=== PATIENT | female | born 1990 | race Hispanic/Latino ===

== ENCOUNTER 2022-07-19 16:36 | Emergency (ER) | payer SELFPAY ==
[2022-07-19] MEDS ORDERED: Ibuprofen 200 MG TAB ONE (18:23)
[2022-07-19] MEDS ORDERED: Dexamethasone 10 MG/ML VIAL ONE (18:24)
[2022-07-19 19:10] LABS: SARS-CoV-2 NAA Rapid Test Not Detected (NotDetected)
== END 2022-07-19 20:47 | disposition home or self-care (01) ==
LOC: CSHERS 16:36
DX: B34.9 Viral infection, unspecified (principal); Z20.822 Contact with and (suspected) exposure to COVID-19; F17.210 Nicotine dependence, cigarettes, uncomplicated
CPT/HCPCS: 71045; 87081; 87430; 93005; J1100

== ENCOUNTER 2022-09-27 19:13 | Emergency (ER) | payer SELFPAY ==
[2022-09-27] MEDS ORDERED: Dexamethasone 10 MG/ML VIAL ONE (20:10)
[2022-09-27] MEDS ORDERED: cefTRIAXone\\ROCEPHIN 1 GM VIAL ONE (20:10)
[2022-09-27] MEDS ORDERED: Lidocaine 1% PF 5 ML VIAL ONE (20:11)
== END 2022-09-27 20:28 | disposition home or self-care (01) ==
LOC: CSHERS 19:13
DX: J02.9 Acute pharyngitis, unspecified (principal); F17.210 Nicotine dependence, cigarettes, uncomplicated
CPT/HCPCS: 96372; 99283; J0696; J1100

== ENCOUNTER 2023-05-02 12:20 | Emergency (ER) | payer SELFPAY ==
[2023-05-02] MEDS ORDERED: Dexamethasone 4 MG TAB ONE (14:51)
== END 2023-05-02 14:52 | disposition home or self-care (01) ==
LOC: CSHERS 12:20
DX: J02.9 Acute pharyngitis, unspecified (principal); H92.01 Otalgia, right ear; F17.210 Nicotine dependence, cigarettes, uncomplicated
CPT/HCPCS: 99283; J8540

== ENCOUNTER 2024-09-16 06:05 | Emergency (ER) | payer MEDICAID, SELFPAY ==
[2024-09-16 06:58] LABS: #Basophils 0.05 10x3/uL (0.0-0.2); #Eosinophils 0.15 10x3/uL (0.0-0.5); #Monocytes 0.89 10x3/uL (0.0-1.1); #Neutrophils 6.36 10x3/uL (1.5-8.4); %Basophils 0.5 % (0.0-2.0); %Eosinophils 1.6 % (0.0-6.0); %Lymphocytes 20.9 % (18.0-47.0); %Monocytes 9.4 % (0.0-10.0); %Neutrophils 67.2 % (40.0-75.0); Hematocrit 34.1 % (34.9-44.5); Hemoglobin 12.4 g/dL (12.0-15.5); Mean Corpuscular HGB CONC 36.4 g/dL (32.0-36.0); Mean Corpuscular Hemoglobin 31.6 pg (27.0-33.0); Mean Platelet Volume 10.5 fL (7.4-10.4); Platelet Count 282 10x3/uL (150-450); RBC Distribution Width 11.7 % (11.5-14.5); Red Blood Cell (RBC) Count 3.92 10x6/uL (3.90-5.03); White Blood Cell (WBC) Count 9.5 10x3/uL (3.5-10.5)
[2024-09-16 07:17] LABS: ALT (SGPT) 22 U/L (8-55); AST (SGOT) 19 U/L (5-34); Albumin 3.2 g/dL (3.5-5.0); Alkaline Phosphatase 50 U/L (40-110); Anion Gap 13 mmol/L (10-20); BUN (Urea Nitrogen) 7 mg/dL (7.0-18.7); Bilirubin, Total 0.5 mg/dL (0.2-1.2); Calc. Creatinine Clearance 0 mL/min (70-130); Calcium 9.1 mg/dL (7.8-10.44); Carbon Dioxide 21 mmol/L (22-29); Chloride 109 mmol/L (98-107); Estimated GFR 122; Globulin 3.3 g/dL (2.4-3.5); Glucose 89 mg/dL (70-105); Potassium 3.5 mmol/L (3.5-5.1); Protein, Total 6.5 g/dL (6.0-8.3); Sodium 139 mmol/L (136-145)
[2024-09-16] MEDS ORDERED: Metoclopramide HCl 10 MG (2 mL) VIAL ONE (07:31)
[2024-09-16] MEDS ORDERED: Acetaminophen 325 MG TAB ONE (07:32)
[2024-09-16 08:12] LABS: Bilirubin Neg (Negative); Blood, Urine 250 (Negative); Clarity Slightly Cloudy (Clear); Glucose, Urine (Dipstick) Normal (Negative); Ketone, Urine 5 mg/dL (Negative); Leukocyte 25 (Negative); Nitrite Negative (Negative); Protein, Urine (Dipstick) 15 mg/dl (Neg-Trace); Specific Gravity, Urine 1.025 (1.005-1.030)
[2024-09-16 08:22] LABS: Bacteria/HPF 2+ HPF (None Seen); CAUTI Indications for Culture Pregnancy; RBC/HPF 0-3 HPF (0-3)
[2024-09-16 08:23] LABS: Mucous/LPF 2+ LPF (<2+); Urine Culture Reflex No No; Urine Culture Reflex Yes Yes
== END 2024-09-16 09:01 | disposition home or self-care (01) ==
LOC: CSHERS 06:05
DX: O44.12 Complete placenta previa with hemorrhage, second trimester (principal); O99.891 Other specified diseases and conditions complicating pregnancy; O99.332 Smoking (tobacco) complicating pregnancy, second trimester; F17.290 Nicotine dependence, other tobacco product, uncomplicated; O99.282 Endocrine, nutritional and metabolic diseases complicating pregnancy, second trimester; E03.9 Hypothyroidism, unspecified; Z79.890 Hormone replacement therapy; Z79.82 Long term (current) use of aspirin; Z3A.18 18 weeks gestation of pregnancy
CPT/HCPCS: 76857; 80053; 81001; 85025; 87086; 96374; J2765

== ENCOUNTER 2024-11-22 19:15 | Emergency (ER) | payer SELFPAY ==
[2024-11-22] MEDS ORDERED: Acetaminophen 500 MG TAB ONE (19:38)
[2024-11-22] MEDS ORDERED: Ondansetron ODT 4 MG TAB ONE (19:38)
[2024-11-22 20:33] LABS: #Basophils 0.03 10x3/uL (0.0-0.2); #Eosinophils 0.03 10x3/uL (0.0-0.5); #Monocytes 1.11 10x3/uL (0.0-1.1); #Neutrophils 7.53 10x3/uL (1.5-8.4); %Basophils 0.3 % (0.0-2.0); %Eosinophils 0.3 % (0.0-6.0); %Lymphocytes 12.5 % (18.0-47.0); %Monocytes 11.1 % (0.0-10.0); %Neutrophils 75.4 % (40.0-75.0); Hematocrit 33.4 % (34.9-44.5); Mean Corpuscular HGB CONC 35.9 g/dL (32.0-36.0); Mean Corpuscular Hemoglobin 31.7 pg (27.0-33.0); Mean Corpuscular Volume 88.1 fL (81.6-98.3); Mean Platelet Volume 10.7 fL (7.4-10.4); Platelet Count 226 10x3/uL (150-450); RBC Distribution Width 11.9 % (11.5-14.5); Red Blood Cell (RBC) Count 3.79 10x6/uL (3.90-5.03); White Blood Cell (WBC) Count 9.99 10x3/uL (3.5-10.5)
[2024-11-22 20:51] LABS: ALT (SGPT) 26 U/L (Less than 34); AST (SGOT) 30 U/L (11-34); Albumin 2.9 g/dL (3.1-4.5); Alkaline Phosphatase 72 U/L (40-110); Anion Gap 13 mmol/L (10-20); BUN (Urea Nitrogen) Less than 4 mg/dL (7.0-18.7); Bilirubin, Total 0.3 mg/dL (0.3-1.2); Calc. Creatinine Clearance 0 mL/min (70-130); Calcium 8.7 mg/dL (7.8-10.44); Carbon Dioxide 20 mmol/L (22-29); Chloride 107 mmol/L (98-107); Estimated GFR 129; Globulin 3.4 g/dL (2.4-3.5); Glucose 87 mg/dL (70-105); Lipase 25 U/L (8-78); Magnesium 1.8 mg/dL (1.6-2.6); Potassium 3.6 mmol/L (3.5-5.1); Protein, Total 6.3 g/dL (6.0-8.3); Sodium 136 mmol/L (136-145)
[2024-11-22 20:57] LABS: Troponin I Less than 0.010 ng/mL (< 0.028)
[2024-11-22 21:00] LABS: Bilirubin Neg (Negative); Blood, Urine 10 (Negative); Glucose, Urine (Dipstick) Normal (Negative); Ketone, Urine 150 mg/dL (Negative); Leukocyte 25 (Negative); Nitrite Negative (Negative); Protein, Urine (Dipstick) 30 mg/dl (Neg-Trace); Specific Gravity, Urine 1.015 (1.005-1.030); Urobilinogen Normal mg/dL (Less than 2)
[2024-11-22 21:17] LABS: Clarity Hazy (Clear)
[2024-11-22 22:03] LABS: CAUTI Indications for Culture Pregnancy
[2024-11-22 22:05] LABS: Transitional Epithelial 0-3 HPF (None Seen)
[2024-11-22 22:11] LABS: Bacteria/HPF 2+ HPF (None Seen); Mucous/LPF 3+ LPF (<2+)
[2024-11-22 22:12] LABS: Urine Culture Reflex Yes Yes
== END 2024-11-22 21:58 | disposition home or self-care (01) ==
LOC: CSHERS 19:15
DX: O98.512 Other viral diseases complicating pregnancy, second trimester (principal); J11.1 Influenza due to unidentified influenza virus with other respiratory manifestations; O99.891 Other specified diseases and conditions complicating pregnancy; E86.0 Dehydration; O99.282 Endocrine, nutritional and metabolic diseases complicating pregnancy, second trimester; E03.9 Hypothyroidism, unspecified; O10.912 Unspecified pre-existing hypertension complicating pregnancy, second trimester; O99.332 Smoking (tobacco) complicating pregnancy, second trimester; F17.290 Nicotine dependence, other tobacco product, uncomplicated; Z3A.27 27 weeks gestation of pregnancy; Z79.890 Hormone replacement therapy
CPT/HCPCS: 36415; 76815; 80053; 81001; 83690; 83735; 84484; 85025; 87086; 93005; 96360; Q0162